=== PATIENT | male | born 1950 | race Caucasian/White ===

== ENCOUNTER → 2017-01-11 | Outpatient (CLI) | payer OTHER ==
[~2017-01-11] MED LIST: ASPI81TA2 PO; ATOR40TA64 PO; CLOP75TA33 PO; GABA-336 PO; LEVO50TA11 PO; LISI2.5T2 PO; MELO-267 PO; MULT-933 PO; NEBI10TA PO
--- NOTE | 2017-01-11 12:48 | DI ---
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 Anterior and posterior planar whole-body and spot images were obtained. FINDINGS: The scan demonstrates the expected normal biodistribution for the radiotracer. There is stable degenerative uptake. No new areas of tracer accumulation. There is no abnormal radiotracer uptake to suggest bony metastasis. IMPRESSION: Stable exam without evidence of metastatic disease to the skeleton. .
== END ==
LOC: IMA 08:40
PROVIDERS: ATTEND Internal Medicine Hematology & Oncology
DX: C50.422 Malignant neoplasm of upper-outer quadrant of left male breast (principal)
CPT/HCPCS: 78306; A9503